=== PATIENT | male | born 1975 | race Caucasian/White ===

== ENCOUNTER 2019-06-06 21:40 | Inpatient (IN) | payer OTHER ==
[~2019-06-06] VITALS: Ht 195.6 cm; Wt 204.1 kg
[~2019-06-06 21:40] MED LIST: CLINDAMYCIN HC300 MG PO; INTESTINEX1 CA1 PO; PROCARDIA PO
--- NOTE | 2019-06-06 22:16 | NUR ---
PTE ALERTA Y ORIENTADO X3, PTE REFIERE QUE PRESENTA CELULITIS EN PIERNA DERECHA Y PRESENTA ULCERAS EN AMBAS PIERNAS. SE OBSERVA PIERNA DERECHA CON EDEMA,SE OBSERVA VEE EL AREA Y DURA AL TACTO.
--- NOTE | 2019-06-07 01:17 | NUR ---
PACIENTE ALERTA Y ORIENTADO X3. SE ORIENTA SOBRE TX Y PROCEDIMIENTO A REALIZAR Y REFIERE ENTENDER. SE REALIZA MUESTRAS DE LABORATORIO BAJO MEDIDAS ASEPTICAS. CANALIZACION PATENTE Y MALIKA DE EDEMA Y ERITEMA. SE ADMINISTRA MEDICAMENTOS [facility]. SE MANTIENE BAJO OBSERVACION POR CAMBIOS SIGNIFICATIVOS. PACIENTE CON CELULITIS EN PIE DERECHO.
--- NOTE | 2019-06-07 09:18 | NUR ---
SE RECIBE PTE DLE TURNO ANTERIOR, EN CAMA NIVEL MAS BAJO, PAYNE DE IDENTIFICACION Y BARANDAS ELEVADAS POR PRECAUCION. SE OBSERVA CON BUEN PATRON RESPIRATORIO Y PIEL TIBIA AL TACTO. H/L PATENTE Y MALIKA DE EDEMA O ERITEMA. PENDIENTE A CONSULTA CON DR Maddie CAPONE. SE MANTIENE BAJO OBSERVACION.
[2019-06-08] MEDS ORDERED: NIFEDIPINE ER30 M1 PO (07:54)
[2019-06-13] MEDS ORDERED: NIFE60TA3 PO (16:01)
[2019-06-13] MEDS ORDERED: AMOX-CLAV 875-1 EACH PO (16:01)
== END 2019-06-13 20:12 | disposition home or self-care (01) | DRG 571 ==
LOC: ER 21:40 → MEDJ 06-07 14:39 → SEC-K 06-07 14:39 → MEDJ 06-08 04:56
PROVIDERS: ADMIT Internal Medicine
PROC: B54BZZZ Ultrasonography of Right Lower Extremity Veins (ICD-10-PCS; 2019-06-08)
PROC: B44FZZZ Ultrasonography of Right Lower Extremity Arteries (ICD-10-PCS; 2019-06-08)
PROC: 0JBN0ZZ Excision of Right Lower Leg Subcutaneous Tissue and Fascia, Open Approach (ICD-10-PCS; principal; 2019-06-09)
PROC: 8E0ZXY6 Isolation (ICD-10-PCS; 2019-06-09)
DX: L97.818 Non-pressure chronic ulcer of other part of right lower leg with other specified severity (principal); L03.115 Cellulitis of right lower limb; M86.8X6 Other osteomyelitis, lower leg; I82.411 Acute embolism and thrombosis of right femoral vein; I82.431 Acute embolism and thrombosis of right popliteal vein; B95.61 Methicillin susceptible Staphylococcus aureus infection as the cause of diseases classified elsewhere; B95.1 Streptococcus, group B, as the cause of diseases classified elsewhere; E66.01 Morbid (severe) obesity due to excess calories; I89.0 Lymphedema, not elsewhere classified

== ENCOUNTER 2021-12-27 20:47 | Inpatient (IN) | payer OTHER ==
[~2021-12-27] VITALS: Ht 195.6 cm; Wt 222.3 kg
[~2021-12-27 20:47] MED LIST changes: +AMOX-CLAV 875-1 EACH PO; +NIFE60TA3 PO; +NIFEDIPINE ER30 M1 PO
[2021-12-27] MEDS ORDERED: PROCARDIA 30 MG (21:08)
[2021-12-27] MEDS ORDERED: MOTRIN 800 MG. (21:09)
--- NOTE | 2021-12-27 21:09 | NUR ---
PTE SE RECIBE POR 3 ULCERAS ABIERTAS EN LA PIERNA DERECHA REFIERE PTE.
--- NOTE | 2021-12-28 00:49 | NUR ---
PACIENTE ALERTA Y ORIENTADO X3. PACIENTE EN AZAR CON BARANDAS ELEVADAS POR SEGURIDAD. SE REALIZAN MUESTRAS DE LAB [facility] MEDICA, BAJO MEDIDAS ASEPTICAS. SE OBSERVA AREA DE PIERNA DERECHA CON ERITEMA Y CALIENTE AL TACTO. SE CANALIZA BAJO MEDIDAS ASEPTICAS EN BRAZO DERECHO CON ANGIO 22. AREA MALIKA DE ENROJECIMIENTO Y EDEMA. SE ADMINISTRA MEDICAMENTOS [facility] MEDICA. SE EDUCA SOBRE TRATAMIENTO MEDICO, SE MANTINE BAJO OBSERVACION POR CAMBIOS RACHEL TURNO.
--- NOTE | 2021-12-28 03:51 | NUR ---
SE NOTIFICA A MIS. VILLEGA TERAPIA RESPIRATORIA ORDENADA POR DR. FIGUEROA.
--- NOTE | 2021-12-28 04:03 | NUR ---
PERSONAL DE TERAPIA RESPIRATORIA OFRECE LA MISMA A PACIENTE.
--- NOTE | 2021-12-28 08:00 | NUR ---
SE RECIBE PTE. DEL TURNO ANTERIOR EN AZAR CON BARRANDAS ELVADAS . PTE. REFIERE DOLOR EN KARYNA [R]. SE ORIENTA SOBRE TRATAMIENTO Y SE CANALIZA PTE. CON TECNICAS ASEPTICAS.EVALUADO PTE. POR DR. FELIZ. SE YADIRA PTE. BAJO OBSERVACION POR CAMBIO.
--- NOTE | 2021-12-28 08:20 | NUR ---
SARWATIA KELLYICADA Daisy OCASIO.
--- NOTE | 2021-12-28 14:05 | NUR ---
. YANCEY RE-EVALUA PTE. SE ORIENTA SOBRE TRATAMIENTO Y MEDICAMENTO EL CUAL SE ADM. [facility]ICA EN GLUTEO [L] CON TECNICAS ASEPTICAS POR MRS. DEVEN MALONEY.
== END 2022-01-07 21:14 | disposition home or self-care (01) | DRG 638 ==
LOC: ER 20:47 → SEC-K 12-28 15:01 → MEDJ 12-28 15:01
PROVIDERS: ADMIT Internal Medicine; ATTEND Internal Medicine
PROC: B54BZZZ Ultrasonography of Right Lower Extremity Veins (ICD-10-PCS; 2021-12-28)
PROC: 3E0F7GC Introduction of Other Therapeutic Substance into Respiratory Tract, Via Natural or Artificial Opening (ICD-10-PCS; 2021-12-28)
PROC: 0HDKXZZ Extraction of Right Lower Leg Skin, External Approach (ICD-10-PCS; principal; 2021-12-30)
PROC: 02HV33Z Insertion of Infusion Device into Superior Vena Cava, Percutaneous Approach (ICD-10-PCS; 2021-12-30)
PROC: B34HZZZ Ultrasonography of Right Upper Extremity Arteries (ICD-10-PCS; 2022-01-05)
PROC: 0HDKXZZ Extraction of Right Lower Leg Skin, External Approach (ICD-10-PCS; 2022-01-06)
DX: E11.622 Type 2 diabetes mellitus with other skin ulcer (principal); L97.819 Non-pressure chronic ulcer of other part of right lower leg with unspecified severity; L97.829 Non-pressure chronic ulcer of other part of left lower leg with unspecified severity; L03.115 Cellulitis of right lower limb; Z68.43 Body mass index [BMI] 50.0-59.9, adult; B95.61 Methicillin susceptible Staphylococcus aureus infection as the cause of diseases classified elsewhere; B95.1 Streptococcus, group B, as the cause of diseases classified elsewhere; B96.20 Unspecified Escherichia coli [E. coli] as the cause of diseases classified elsewhere; B96.89 Other specified bacterial agents as the cause of diseases classified elsewhere; I80.8 Phlebitis and thrombophlebitis of other sites; T50.995A Adverse effect of other drugs, medicaments and biological substances, initial encounter; Y92.230 Patient room in hospital as the place of occurrence of the external cause; G47.33 Obstructive sleep apnea (adult) (pediatric); I89.0 Lymphedema, not elsewhere classified; J45.998 Other asthma; I10 Essential (primary) hypertension; E66.01 Morbid (severe) obesity due to excess calories; D72.829 Elevated white blood cell count, unspecified; Z20.822 Contact with and (suspected) exposure to COVID-19